=== PATIENT | female | born 1995 | race Caucasian/White ===

== ENCOUNTER 2017-12-18 09:52 | Outpatient (CLI) | payer BC ==
[~2017-12-18 09:52] MED LIST: LAMICTAL200 MG ORAL; LITHIUM CARBON300 MG ORAL; SAPHRIS5 MG SL; SYNTHROID25 MCG ORAL; TESTOSTERO200 MG/1 M SCONJUNC; TESTOSTERO30 MG/1.5 TD; WELLBUTRIN XL150 MG ORAL
== END 2017-12-18 11:52 | disposition home or self-care (01) ==
LOC: ECT 09:52
DX: F25.1 Schizoaffective disorder, depressive type (principal); F31.63 Bipolar disorder, current episode mixed, severe, without psychotic features; F43.10 Post-traumatic stress disorder, unspecified; E03.9 Hypothyroidism, unspecified; Z91.5 Personal history of self-harm; R45.851 Suicidal ideations; Z81.8 Family history of other mental and behavioral disorders; Z88.0 Allergy status to penicillin; Z88.6 Allergy status to analgesic agent